=== PATIENT | female | born 1945 | race Caucasian/White ===

== ENCOUNTER 2017-09-08 10:43 | Emergency (ER) | payer MEDICARE ==
[~2017-09-08] VITALS: Ht 167.6 cm; Wt 55.3 kg
[~2017-09-08 10:43] MED LIST: ASPIRIN CHEW81 MG PO; ATIVAN0.5 MG PO; CARVEDILOL3.125 MG PO; CIPRO500 MG PO; CO Q-10100 MG PO; DIFLUCAN200 MG PO; DIGOXIN125 MCG PO; EFFEXOR XR 3737.5 MG PO; FLAGYL500 MG PO; FUROSEMIDE40 MG PO; ISOPTO CARPINE15 ML OD; K DUR10 MEQ PO; LASIX20 MG PO; LEVAQUIN500 MG PO; LISINOPRIL2.5 MG PO; LUMIGAN2.5 M1 OD; MULTAQ 400MG T400 MG PO; OMEGA-31000 M1 PO; VENLAFAXINE H37.5 MG PO; VENLAFAXINE HCL75 MG PO; Z EFFEXOR PO; Z PILOCARPINE HCL OP; Z ZESTRIL PO; Z.0.BABY ASPIRIN81 M PO; Z.0.COQ-10100 MG PO; Z.0.COREG3.125 MG PO; Z.0.KEFLEX500 MG PO; Z.0.PREDNISONE20 MG PO; Z.0.VICODIN 5-5001 E; [UNRECOGNIZED DRUG - OTHER] OP; [UNRECOGNIZED DRUG - REMARK]
[2017-09-08] MEDS ORDERED: SODIUM CHLORIDE 0.9% 1000ML 1,000 ML IV ONE (11:15)
[2017-09-08 11:32] LABS: BASOPHILS # (AUTO) 0.1 (0.0-0.1); EOSINOPHILS # (AUTO) 0.2 (0.0-0.4); EOSINOPHILS % 1.9 % (0.0-6.0); HEMATOCRIT 35.7 % (34.2-44.1); LYMPHOCYTES # (AUTO) 2.6 (1.0-3.2); LYMPHOCYTES % 27.9 % (18.0-39.1); MEAN CORPUSCULAR HEMOGLOBIN 29.9 pg (28-32); MEAN CORPUSCULAR HGB CONC 33.6 g/dL (31-35); MEAN CORPUSCULAR VOLUME 88.8 fL (81-99); MONOCYTES # (AUTO) 0.6 (0.2-0.8); MONOCYTES % 5.9 % (4.4-11.3); NEUTROPHILS # (AUTO) 5.9 (2.1-6.9); NEUTROPHILS % 62.8 % (38.7-80.0); PLATELET COUNT 275 x10e3/uL (140-360); RED BLOOD COUNT 4.02 x10e6/uL (3.6-5.1); RED CELL DISTRIBUTION WIDTH 13.5 % (11.7-14.4)
[2017-09-08 11:49] LABS: ALANINE AMINOTRANSFERASE 14 IU/L (0-55); ALBUMIN 3.6 g/dL (3.5-5.0); ALKALINE PHOSPHATASE 93 IU/L (40-150); ANION GAP 11.9 mmol/L (8-16); BLOOD UREA NITROGEN 17 mg/dL (7-26); BUN/CREATININE RATIO 21 (6-25); CALCIUM 9.1 mg/dL (8.4-10.2); CARBON DIOXIDE 25 mmol/L (22-29); CHLORIDE 107 mmol/L (98-107); EST GLOMERULAR FILTRATION RATE > 60 ML/MIN (60-); GLUCOSE 86 mg/dL (74-118); POTASSIUM 3.9 mmol/L (3.5-5.1); SODIUM 140 mmol/L (136-145)
--- NOTE | 2017-09-08 12:25 | Diagnostic Imaging Report ---
PROCEDURE:X-RAY RIGHT ELBOW, COMPLETE COMPARISON:None. INDICATIONS:FALL, RIGHT ELBOW PAIN FINDINGS:General osteopenia. There are no displaced fractures, dislocations, lytic or blastic lesions. The bones are well-mineralized. The soft-tissues are unremarkable. CONCLUSION: No acute osseous abnormality. Christina Garcia M.D. Dictated by: Christina Garcia M.D. on 09/08/2017 at 12:30 Electronically approved by: Christina Garcia M.D. on 09/08/2017 at 12:30
--- NOTE | 2017-09-08 12:39 | Diagnostic Imaging Report ---
Exam: Head CT without contrast History: Trauma, fall Comparison studies: Head CTs of 12/21/2015, 01/30/2015 and 05/07/2010 Technique: Axial images were obtained from the skull base to the vertex. Coronal and sagittal images reconstructed from the axial data. Intravenous contrast: None Findings: Scalp: No abnormalities. Bones: No fractures, blastic or lytic lesions. Brain sulci: Appropriate for age. Ventricles: Mild compensatory dilatation. No hydrocephalus. Extra-axial spaces: No masses, no fluid collection. Parenchyma: No mass, acute hemorrhage or acute or chronic cortical vascular insults. Confluent hypodensities in the supratentorial white matter are nonspecific but most compatible with chronic microvascular ischemic changes. Small chronic insults in the posterior left cerebellum in the left PICA territory. Sellar/suprasellar region: No abnormalities. Craniocervical junction: Patent foramen magnum. No Chiari one malformation. Incidental findings: * Bilateral intraocular lens replacement. * Atherosclerotic calcifications in the carotid siphons and intradural vertebral arteries. * Chronic inflammatory changes in the right maxillary sinus which is obstructed at the level of the maxillary ostium, is opacified by mucosal thickening and contains central inspissated secretions and calcifications. 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 IMPRESSION: 1. No acute abnormalities. 2. No significant changes from the previous head CT of 01/30/2015. 3. Moderate microvascular ischemic changes. 4. Chronic left cerebellar insults. 5. 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 Signed by: Dr. Donald Velazco M.D. on 09/08/2017 12:36 PM
[2017-09-08 13:17] VITALS: BP 166/77
== END 2017-09-08 13:18 | disposition home or self-care (01) ==
LOC: ER 10:43
DX: R55 Syncope and collapse (principal); S06.0X9A Concussion with loss of consciousness of unspecified duration, initial encounter; R51 Headache; S50.01XA Contusion of right elbow, initial encounter; Y92.002 Bathroom of unspecified non-institutional (private) residence as the place of occurrence of the external cause; W18.12XA Fall from or off toilet with subsequent striking against object, initial encounter
CPT/HCPCS: 36415; 70450; 73080; 80053; 85025; 93005; 99284; J7030

== ENCOUNTER 2017-10-14 11:17 | Outpatient (RCR) | payer MEDICARE | END 2017-10-15 | LOC: PT 11:17 | PROVIDERS: ATTEND Family Medicine | DX: I69.351 Hemiplegia and hemiparesis following cerebral infarction affecting right dominant side (principal) | CPT/HCPCS: 97162; G8990; G8991 ==

== ENCOUNTER 2017-11-10 10:00 | Outpatient (RCR) | payer MEDICARE | END 2017-11-14 | LOC: PT 10:00 | PROVIDERS: ATTEND Family Medicine | DX: M25.511 Pain in right shoulder (principal); M75.41 Impingement syndrome of right shoulder; M25.611 Stiffness of right shoulder, not elsewhere classified; R53.1 Weakness | CPT/HCPCS: 97010 ×2; 97110 ×10; 97112 ×6; 97139; 97164; 97165 ×2; G8987; G8988 ==

== ENCOUNTER 2017-11-22 15:51 | Outpatient (RCR) | payer MEDICARE | END 2017-12-15 | LOC: PT 15:51 | PROVIDERS: ATTEND Family Medicine | DX: M25.511 Pain in right shoulder (principal); M75.42 Impingement syndrome of left shoulder | CPT/HCPCS: 97110 ×4; 97112 ×2; 97139; G8987; G8988 ==

== ENCOUNTER → 2019-02-24 | Outpatient (CLI) | payer MEDICARE, OTHER ==
[~2019-02-24] MED LIST changes: +ASPIRIN81 MG PO; +BACTRIM DS TAB1 EACH PO; +BRIMONIDINE TAR10 ML OP; +CHOLESTIPOL PO; +COLACE100 MG PO; +COREG3.125 MG PO; +COSOPT EYE DROP10 ML OD; +CYMBALTA30 MG PO; +TYLENOL WITH C1 EACH PO; +ULTRAM50 MG PO
[2019-02-24 10:27] LABS: BASOPHILS # (AUTO) 0.2 (0.0-0.1); BASOPHILS % 0.8 % (0.0-1.0); EOSINOPHILS # (AUTO) 0.2 (0.0-0.4); EOSINOPHILS % 0.9 % (0.0-6.0); HEMATOCRIT 39.7 % (34.2-44.1); HEMOGLOBIN 12.5 g/dL (12.0-16.0); LYMPHOCYTES # (AUTO) 2.4 (1.0-3.2); LYMPHOCYTES % 11.7 % (18.0-39.1); MEAN CORPUSCULAR HEMOGLOBIN 28.2 pg (28-32); MEAN CORPUSCULAR HGB CONC 31.5 g/dL (31-35); MEAN CORPUSCULAR VOLUME 89.4 fL (81-99); MONOCYTES # (AUTO) 1.1 (0.2-0.8); MONOCYTES % 5.5 % (4.4-11.3); NEUTROPHILS # (AUTO) 16.3 (2.1-6.9); NEUTROPHILS % 80.2 % (38.7-80.0); PLATELET COUNT 654 x10e3/uL (140-360); RED BLOOD COUNT 4.44 x10e6/uL (3.6-5.1); RED CELL DISTRIBUTION WIDTH 12.1 % (11.7-14.4)
== END ==
LOC: RAD 05:00 → EDSTATUS 02-25 11:00
PROVIDERS: ATTEND Internal Medicine Gastroenterology
DX: Z01.818 Encounter for other preprocedural examination (principal); R10.9 Unspecified abdominal pain
CPT/HCPCS: 36415; 85025; 93005

== ENCOUNTER → 2019-04-20 | Outpatient (CLI) | payer MEDICARE ==
[2019-04-20 13:13] LABS: BASOPHILS # (AUTO) 0.1 (0.0-0.1); EOSINOPHILS # (AUTO) 0.2 (0.0-0.4); EOSINOPHILS % 1.5 % (0.0-6.0); HEMATOCRIT 38.5 % (34.2-44.1); HEMOGLOBIN 12.5 g/dL (12.0-16.0); LYMPHOCYTES # (AUTO) 2.7 (1.0-3.2); LYMPHOCYTES % 22.5 % (18.0-39.1); MEAN CORPUSCULAR HEMOGLOBIN 29.2 pg (28-32); MEAN CORPUSCULAR HGB CONC 32.5 g/dL (31-35); MONOCYTES # (AUTO) 0.7 (0.2-0.8); MONOCYTES % 5.8 % (4.4-11.3); NEUTROPHILS # (AUTO) 8.2 (2.1-6.9); NEUTROPHILS % 68.8 % (38.7-80.0); PLATELET COUNT 363 x10e3/uL (140-360); RED BLOOD COUNT 4.28 x10e6/uL (3.6-5.1); RED CELL DISTRIBUTION WIDTH 14.3 % (11.7-14.4)
== END ==
LOC: DX 15:02 → EDSTATUS 04-24 10:00
PROVIDERS: ATTEND Internal Medicine Gastroenterology
DX: Z01.818 Encounter for other preprocedural examination (principal); R10.30 Lower abdominal pain, unspecified; R59.1 Generalized enlarged lymph nodes; Z53.8 Procedure and treatment not carried out for other reasons
CPT/HCPCS: 36415; 85025

== ENCOUNTER → 2019-06-29 | Day surgery (SDC) | payer MEDICARE, OTHER ==
[2019-06-26 16:09] LABS: BASOPHILS # (AUTO) 0.2 (0.0-0.1); BASOPHILS % 1.5 % (0.0-1.0); EOSINOPHILS # (AUTO) 0.4 (0.0-0.4); EOSINOPHILS % 3.2 % (0.0-6.0); HEMOGLOBIN 12.9 g/dL (12.0-16.0); LYMPHOCYTES # (AUTO) 3.1 (1.0-3.2); LYMPHOCYTES % 26.4 % (18.0-39.1); MEAN CORPUSCULAR HEMOGLOBIN 28.2 pg (28-32); MEAN CORPUSCULAR HGB CONC 31.5 g/dL (31-35); MEAN CORPUSCULAR VOLUME 89.7 fL (81-99); MONOCYTES # (AUTO) 0.8 (0.2-0.8); NEUTROPHILS # (AUTO) 7.3 (2.1-6.9); NEUTROPHILS % 61.5 % (38.7-80.0); PLATELET COUNT 409 x10e3/uL (140-360); RED BLOOD COUNT 4.57 x10e6/uL (3.6-5.1); RED CELL DISTRIBUTION WIDTH 13.2 % (11.7-14.4)
[~2019-06-29] MED LIST changes: +HYOSCYAMINE 0.125 MG TAB ONE; +LIDOCAINE HCL 2% LOCAL INJ 5 ML SDV VIAL INJ ONE; +PROPOFOL IV EMULSION 10 MG/ML 20 ML VIAL ONE
--- OUTSIDE RECORDS SUMMARY | 2019-06-29 08:37 | XMS REPORT | Clinical Summary ---
Author Author [facility] Address Unknown Phone Unavailable Care Team Providers Care Latin American Studies Director Name Role Phone Blaise Dickerson MD PCP Allergies Comments Active Allergy Reactions Severity Noted Date Penicillins 10/07/2017 Medications End Date Status Medication Sig Dispensed Refills Start Date Active venlafaxine (EFFEXOR) 75 Take 75 mg by 0 MG tablet mouth daily. Active carvedilol (COREG) 12.5 Take 12.5 mg 0 MG tablet by mouth 2 (two) times a day with meals. Active aspirin (ECOTRIN) 81 MG Take 81 mg by 0 enteric coated tablet mouth 2 (two) times a day. Active levETIRAcetam (KEPPRA) Take 250 mg 0 250 MG tablet by mouth daily. Active colestipol (COLESTID) 1 Take 1 g by 0 gram tablet mouth 2 (two) times a day. Active Lactobac no.41/Bifidobact Take 1 tablet 0 no.7 (PROBIOTIC-10 ORAL) by mouth daily. Active multivitamin (THERAGRAN) Take 1 tablet 0 tablet by mouth daily. 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 Closed traumatic dislocation of glenohumeral joint, r ight, sequela 10/29/2017 Closed right humeral fracture 10/29/2017 B12 deficiency 10/29/2017 Memory loss 10/29/2017 Paroxysmal atrial fibrillation 10/29/2017 Encounters Care Team Description Date Type Specialty Melvina Reich MA 09/20/2018 Telephone Neurology after 06/28/2018 Family History Medical History Relation Name Comments No Known Problems Father No Known Problems Mother Relation Name Status Comments Father (Age 70) Mother (Age 70) Social History Date Tobacco Use Types Packs/Day Years Used Quit: 1999 Former Smoker Smokeless Tobacco: Never Used Drinks/Week oz/Week Comments Alcohol Use No Sex Assigned at Date Recorded Not on file Industry Job Start Date Occupation Not on file Not on file Not on file Travel End Travel History Travel Start No recent travel history available. Last Filed Vital Signs Not on file Plan of Treatment Health Maintenance Due Date Last Done Comments BREAST CANCER SCREENING 12/12/1993 COLONOSCOPY SCREENING 12/12/1993 SHINGLES VACCINES (#1) 12/12/1993 65+ PNEUMOCOCCAL VACCINE 12/12/2008 (1 of 2 - PCV13) INFLUENZA VACCINE 09/16/2019 Results Not on fileafter 06/28/2018 Insurance Type Payer Benefit Subscriber ID Effective Phone Address Plan / Dates Group [facility] MEDICARE AARP xxxxxxxxx 2017-P MEDICARE resent COMPLETE [facility] Liability Advance Directives For more information, please contact: [phone] Patient Vice President Underwriting Explanation Type Date Recorded Advance Directives, Living Will and Medical Power of Maintenance Tech
--- OUTSIDE RECORDS SUMMARY | 2019-06-29 08:38 | XMS REPORT ---
Author Author [facility] t Organization [facility] t Address [address] [place] [address] Phone Unavailable Care Team Providers Care Yarn Examiner Name Role Phone Varun SHIELDS MD PCP Neeraj RIVAS Attphys Unavailable Varun SHIELDS Attphys Unavailable KEERTHI PERES Attphys Unavailable Melvina Reich MA Attphys Unavailable Andrew ROMERO Attphyvarun Unavailable Varun SHIELDS Admphyvarun Unavailable Payers Payer Name Policy Type Policy Number Effective Date Expiration Date Varun berumen [facility] Medicare Complete [id number] 2019 00:00:00 [facility] Medicare Complete [id number] 2019 00:00:00 [facility] Aar Medicare Complete [id number] 2019 00:00:00 [facility] [id number] [facility] [id number] [facility] Aar Medicare Complete [id number] 2019 00:00:00 [facility] Medicare Complete [id number] [facility] MEDICAREAARP MEDICARE COMPLETE [id number]/[facility] [place] xxxxxxxxx 2017 00:00:00 Genaro Felton Aarp Medicare Complete [id number] [facility] Medicare Complete [id number] [facility] Medicare Complete [id number] 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 2017-10-29 00:00:00 Genaro Felton Closed traumatic dislocation of glenohumeral joint, ri ght, sequela Closed traumatic dislocation of glenohumeral joint, right, sequela Disease Active 2017-10-29 00:00:00 Genaro Felton Closed right humeral fracture Closed right humeral fracture Disease Active 2017-10-29 00:00:00 Genaro Felton B12 deficiency B12 deficiency Disease Active 2017-10-29 00:00:00 Genaro Felton Memory loss Memory loss Disease Active 2017-10-29 00:00:00 Genaro Felton Paroxysmal atrial fibrillation Paroxysmal atrial fibrillation Disea se Active 2017-10-29 00:00:00 Genaro Felton Bronchitis Bronchitis Problem Active 2013-12-26 00:00:00 [facility] Sepsis Sepsis Problem Active 2013-12-26 00:00:00 [facility] Abnormal electrocardiogram EKG abnormalities Problem Active 28-11-26 00:00:00 [facility] Left bundle branch block Left bundle branch block Problem Acti ve 2013-12-11 00:00:00 [facility] Unstable angina pectoris Unstable angina Problem Active 2013-12-11 00:0 0:00 [facility] Atrial fibrillation Atrial fibrillation Problem Active 2013-11-27 00:00 :00 [facility] Congestive heart failure CHF (congestive heart failure) Problem Active 2013-11-27 00:00:00 [facility] Transient cerebral ischemia Brain TIA Problem Active [facility] Chest pain Chest pain Problem Active [facility] Urinary tract infection UTI (urinary tract infection) Problem Active [facility] Allergies, Adverse Reactions, Alerts Allergy Name Allergy Type Status Severity Reaction(s) Onset Date Inacti ve Date Treating Clinician Comments Source Penicillin Allergy to Substance Active Unknown 2019-02-16 00:00:00 [facility] Penicillins Propensity to adverse reactions to drug Active 2017-10-07 00:00:00 Genaro dempsey COLD BLOOD Allergy to Substance Active Unknown CANNOT TAKE COLD BLOOD WILL DAMAGE RBC'S - MUST BE WARMED. 2017-09-08 00:00:00 [facility] Family History Family Member Diagnosis Comments Start Date Stop Date Source Natural father No Known Problems Ana M Felton Natural mother No Known Problems Ana M Felton Social History Social Habit Start Date Stop Date Quantity Comments Source History of tobacco use Current smoker Genaro Felton Sex Assigned At Ana M Felton Alcohol intake 2017-10-29 00:00:00 2017-10-29 00:00:00 Current non-drinker of alcohol (finding) Genaro Felton Smoking Status Start Date Stop Date Source Former smoker 2017-10-29 00:00:00 2017-10-29 00:00:00 Genaro Felton Medications Ordered Medication Name Filled Medication Name Start Date Stop Da te Current Medication? Ordering Clinician Indication Dosage Frequency Signature (SIG) Comments Components Source Tramadol Hcl (Ultram) 50 Mg Tablet Tramadol Hcl (Ultram) 50 Mg Tablet 2019-02-19 00:00:00 Yes Keerthi Peres Do 50 Ev elvia 6 Hours as needed for Abdominal Pain [facility] Acetaminophen With Codeine (Tylenol With Codeine #3 Tablet) 1 Each Tablet, 300 Mg Oral Acetaminophen With Codeine (Tylenol With Codeine #3 Tablet) 1 Each Tablet, 300 Mg Oral 2019-02-19 00:00:00 2019-03-05 00:00:00 No Ambi ca Sandhir Do 300 Every 6 Hours as needed for Abdominal Pa in [facility] Docusate Sodium (Colace) 100 Mg Cap, 100 Mg Oral Docus ate Sodium (Colace) 100 Mg Cap, 100 Mg Oral 2019-02-16 00:00:00 2019-02-24 00:00:00 No Ambica Sandh ir Do 100 Daily [facility] Sulfamethoxazole/Trimethoprim (Bactrim Ds Tablet) 1 Ea ch Tablet, 1 Tab Oral Sulfamethoxazole/Trimethoprim (Bactrim Ds Tablet) 1 Each Tablet, 1 Tab Oral 2019-02-16 00:00:00 2019-02-24 00:00:00 No Ambica Sandhir Do 1 Twice A Day [facility] multivitamin (THERAGRAN) tablet 2017-10-29 18:02:10 Yes 1{tbl} QD Take 1 tablet by mouth daily. Genaro Felton venlafaxine (EFFEXOR) 75 MG tablet 2017-10-29 18:02:08 Yes 75mg QD Take 75 mg by mouth daily. Genaro Felton carvedilol (COREG) 12.5 MG tablet 2017-10-29 18:02:08 Yes 12.5mg Q.5D Take 12.5 mg by mouth 2 (two) times a day with meals. Genaro Felton aspirin (ECOTRIN) 81 MG enteric coated tablet 2017-10-29 18:02:0 8 Yes 81mg Q.5D Take 81 mg by mouth 2 (two) times a day. Genaro Felton levETIRAcetam (KEPPRA) 250 MG tablet 2017-10-29 18:02:08 Ye s 250mg QD Take 250 mg by mouth daily. Genaro persaud colestipol (COLESTID) 1 gram tablet 2017-10-29 18:02:08 Yes 1g Q.5D Take 1 g by mouth 2 (two) times a day. Alana Felton Lactobac no.41/Bifidobact no.7 (PROBIOTIC-10 ORAL) 2017-10 18:02:08 Yes 1{tbl} QD Take 1 tablet by mouth daily. Genaro Felton Levofloxacin (Levaquin) 500 Mg Tablet, 500 Mg Oral Lev ofloxacin (Levaquin) 500 Mg Tablet, 500 Mg Oral 2013-12-29 00:00:00 2015-01-30 00:00:00 Trinidad Cruz Md 500 Daily [facility] Metronidazole (Flagyl) 500 Mg Tablet, 500 Mg Oral Metr onidazole (Flagyl) 500 Mg Tablet, 500 Mg Oral 2013-12-29 00:00:00 2015-01-30 00:00:00 Trinidad Cruz Md 500 Every [address] [facility] Bimatoprost (Lumigan) 2.5 Ml Drops Bimatoprost (Lumigan) 2.5 Ml Drops Yes 1 Bedtime [facility] Brimonidine Tartrate 10 Ml Drops Brimonidine Tartrate 10 Ml Drops Yes 10 Every 12 Hours [facility] Carvedilol (Coreg) 3.125 Mg Tab Carvedilol (Coreg) 3.125 Mg Tab Yes 6.25 Twice Daily With Meals [facility] Duloxetine Hcl (Cymbalta) 30 Mg Capsule. Duloxetine Hcl (Cymbalta) 30 Mg Capsule. Yes 60 Twice A Day [facility] Pilocarpine Hcl (Isopto Carpine) 15 Ml Drops Pilocarpi ne Hcl (Isopto Carpine) 15 Ml Drops Yes 1 Every [address] [facility] Ubidecarenone (Co Q-10) 100 Mg Capsule Ubidecarenone (Co Q-10) 1 00 Mg Capsule Yes 100 Daily [facility] Aspirin (Aspirin Chew) 81 Mg Chew, 81 Mg Oral Aspirin (Aspirin Chew) 81 Mg Chew, 81 Mg Oral 2019-02-24 00:00:00 No 81 Twice A Day [facility] Carvedilol 3.125 Mg Tablet, 6.25 Mg Oral Carvedilol 3. 125 Mg Tablet, 6.25 Mg Oral 2019-02-24 00:00:00 No 6.25 Twice A Day [facility] Lisinopril 2.5 Mg Tablet, 2.5 Mg Oral Lisinopril 2.5 Mg Tablet, 2.5 Mg Oral 2019-02-24 00:00:00 No 2.5 Twice A Day [facility] Venlafaxine Hcl (Effexor Xr 37.5MG Capcr*) 37.5 Mg Cap cr, 37.5 Mg Oral Venlafaxine Hcl (Effexor Xr 37.5MG Capcr*) 37.5 Mg Capcr, 37.5 Mg Oral 2019-02-24 00:00:00 No 37.5 Twice A Day [facility] Digoxin 125 Mcg Tablet, 0.125 Mg Oral Digoxin 125 Mcg Tablet, 0. 125 Mg Oral 2015-01-30 00:00:00 No .125 Daily [facility] Furosemide 40 Mg Tablet, 20 Mg Oral Furosemide 40 Mg Tablet, 20 Mg Oral 2015-01-30 00:00:00 No 20 Daily [facility] Venlafaxine Hcl 75 Mg Tab, 75 Mg Oral Venlafaxine Hcl 75 Mg Tab, 75 Mg Oral 2015-01-30 00:00:00 No 75 Bedtime [facility] Venlafaxine Hcl (Effexor) 50 Mg Tablet, 37.5 Mg Oral V enlafaxine Hcl (Effexor) 50 Mg Tablet, 37.5 Mg Oral 2013-12-27 00:00:00 No 37.5 Bedtime [facility] Ciprofloxacin Hcl (Cipro) 500 Mg Tablet, 500 Mg Oral C iprofloxacin Hcl (Cipro) 500 Mg Tablet, 500 Mg Oral 2013-12-26 00:00:00 No 500 Every 12 Hours [facility] Fluconazole (Diflucan) 200 Mg Tablet, 200 Mg Oral Fluc onazole (Diflucan) 200 Mg Tablet, 200 Mg Oral 2013-12-26 00:00:00 No 200 Nazia y [facility] Dronedarone (Multaq 400MG Tablets*) 400 Mg Tab, 400 Mg Oral Dronedarone (Multaq 400MG Tablets*) 400 Mg Tab, 400 Mg Oral 2013-11-27 00:00:00 No 400 Twice A Day [facility] Furosemide (Lasix) 20 Mg Tablet, 20 Mg Oral Furosemide (Lasix) 20 Mg Tablet, 20 Mg Oral 2013-11-27 00:00:00 No 20 Every Morning [facility] Levofloxacin (Levaquin) 500 Mg Tablet, 500 Mg Oral Lev ofloxacin (Levaquin) 500 Mg Tablet, 500 Mg Oral 2013-11-27 00:00:00 No 500 D aily [facility] Lorazepam (Ativan*) 0.5 Mg Tablet, 0.5 Mg Oral Lorazep am (Ativan*) 0.5 Mg Tablet, 0.5 Mg Oral 2013-11-27 00:00:00 No .5 Ever y 24 Hrs [facility] Potassium Chloride (K Dur*) 10 Meq Tabcr, 20 Meq Oral Potassium Chloride (K Dur*) 10 Meq Tabcr, 20 Meq Oral 2013-11-27 00:00:00 No 20 Daily [facility] Cephalexin Monohydrate (Keflex) 500 Mg Capsule, 500 Mg Oral Cephalexin Monohydrate (Keflex) 500 Mg Capsule, 500 Mg Oral 2012-08-20 00:00:00 No 500 Every 6 Hours [facility] Hereford-3 Fatty Acids (Hereford-3) 1,000 Mg Capsule, 1 Cap Oral Hereford-3 Fatty Acids (Hereford-3) 1,000 Mg Capsule, 1 Cap Oral 2012-08-20 00:00:00 No 1 Daily [facility] Prednisone 20 Mg Tablet, 10 Mg Oral Prednisone 20 Mg Tablet, 10 Mg Oral 2012-08-20 00:00:00 No 10 Daily [facility] Hydrocodone Bit/Acetaminophen (Vicodin 5-500 Tablet) 1 Each Tablet, Hydrocodone Bit/Acetaminophen (Vicodin 5-500 Tablet) 1 Each Tablet, 2011 00:00:00 [facility] Procedures Procedure Date / Time Performed Performing Clinician [facility] qi Computed tomography of abdomen and pelvis with contrast 2019 00:00:00 VINICIUS ARREDONDO [facility] Computed tomography of abdomen and pelvis with contrast 2019 00:00:00 VINICIUS PURDY [facility] Plan of Care Planned Activity Planned Date Details Comments Source Future Scheduled Test [code = ] Future Scheduled Test [code = ] Future Scheduled Test [code = ] Future Scheduled Test [code = ] Future Scheduled Test [code = ] Encounters Start Date/Time End Date/Time Encounter Type [facility] Encounter ID Source 2019-03-14 14:43:00 2019-03-14 18:46:00 Departed Emergency Room [facility] [id number] [facility] Patients [facility] 2019-03-05 09:23:00 2019-03-06 20:03:00 Discharged Inpatient (obs) 1 FRANCIS RIVAS [facility] [id number] [facility] 2019-02-25 11:38:00 2019-03-02 13:40:00 Discharged Inpatient 1 BERE SHIELDS [facility] [id number] [facility] 2019-02-23 18:58:00 2019-02-23 19:50:00 Departed Emergency Room [facility] [id number] [facility] 2019-02-19 16:00:00 2019-02-19 17:03:00 Departed Emergency Room [facility] [id number] [facility] 2019-02-16 13:04:00 2019-02-16 21:18:00 Departed Emergency Room 1 KEERTHI PERES [facility] [id number] [facility] 2017-11-10 10:00:00 2017-11-14 23:59:00 Discharged Recurring [facility] [id number] [facility] 2017-10-14 11:17:00 2017-10-15 23:59:00 Discharged Recurring [facility] [id number] [facility] 2017-09-08 10:43:00 2017-09-08 13:18:00 Departed Emergency Room 1 VIOLETA ROMERO [facility] [id number] [facility] Results Test Description Test Time Test Comments Results Result Comments Source [facility] 2019-03-14 18:17:00 Test Item Lipase (test code = 3040-3) 75 8-78 [facility] [id number] 18:14:00* Test Item Value Reference Range Interpretation Comments Sodium Level (test code = 2951-2) 135 136-145 [facility]Potassium [id number] 18:14:00* Test Item Value Reference Range Interpretation Comments Potassium Level (test code = 2823-3) 4.1 3.5-5.1 [facility] HospitalChloride [id number] 18:14:00* Test Item Value Reference Range Interpretation Comments Chloride Level (test code = 2075-0) 99 98-107 [facility] HospitalCarbon Dioxide [id number] 18:14:00* Test Item Value Reference Range Interpretation Comments Carbon Dioxide Level (test code = 2028-9) 23 22-29 [facility] HospitalAnion [id number] 18:14:00* Test Item Value Reference Range Interpretation Comments Anion Gap (test code = 21988-8) 17.1 8-16 [facility] HospitalBlood Urea [id number] 18:14:00* Test Item Value Reference Range Interpretation Comments Blood Urea Nitrogen (test code = 3094-0) 16 7-26 [facility] HospitalCreatinine2020-01-28 18:14:00* Test Item Value Reference Range Interpretation Comments Creatinine (test code = 2160-0) 0.87 0.57-1.11 [facility] HospitalBUN/Creatinine [id number] 18:14:00* Test Item Value Reference Range Interpretation Comments BUN/Creatinine Ratio (test code = 3097-3) 18 6-25 [facility] HospitalEstimat Glomerular Filtration Rate 2019-03-14 18:14:00* Test Item Value Reference Range Interpretation Comments Estimat Glomerular Filtration Rate (test code = 948811345) > 60 >60 Ranges were taken from the National Kidney Disease Education Program and the [employer] [facility] [employer] literature.Reference ranges:60 or greater: Tawkzp81-95 ( for 3 consecutive months): Chronic kidney disease 15 or less: Kidney failureNocona General HospitalGlucose Xwnmd9953-01-29 18:14:00* Test Item Value Reference Range Interpretation Comments Glucose Level (test code = GLX7128) 120 74-118 [facility] HospitalCalcium [id number] 18:14:00* Test Item Value Reference Range Interpretation Comments Calcium Level (test code = 83961-2) 10.0 8.4-10.2 [facility] HospitalTotal Kaxvngrsm5528-14-22 18:14:00* Test Item Value Reference Range Interpretation Comments Total Bilirubin (test code = 1975-2) 0.4 0.2-1.2 [facility] HospitalAspartate Amino Transf (AST/SGOT) 2019-03-14 18:14:00* Test Item Value Reference Range Interpretation Comments Aspartate Amino Transf (AST/SGOT) (test code = Aspartate Amino Transf (AST/SGOT)) 41 5-34 [facility] HospitalAlanine Aminotransferase (ALT/SGPT) 2019-03-14 18:14:00* Test Item Value Reference Range Interpretation Comments Alanine Aminotransferase (ALT/SGPT) (test code = 1742-6) 29 0-55 [facility] HospitalTotal Lerikxi2805-00-09 18:14:00* Test Item Value Reference Range Interpretation Comments Total Protein (test code = 2885-2) 8.0 6.5-8.1 [facility] HospitalAlbumin2020-01-28 18:14:00* Test Item Value Reference Range Interpretation Comments Albumin (test code = 1751-7) 3.6 3.5-5.0 [facility] HospitalGlobulin2020-01-28 18:14:00* Test Item Value Reference Range Interpretation Comments Globulin (test code = 30235-4) 4.4 2.3-3.5 [facility] HospitalAlbumin/Globulin [id number] 18:14:00 * Test Item Value Reference Range Interpretation Comments Albumin/Globulin Ratio (test code = 1759-0) 0.8 0.8-2.0 [facility] HospitalAlkaline Rexqznqhwhv5677-34-57 18:14:00* Test Item Value Reference Range Interpretation Comments Alkaline Phosphatase (test code = 6768-6) 205 40-150 [facility] HospitalWhite Blood Nsldj8495-42-21 18:00:00* Test Item Value Reference Range Interpretation Comments White Blood Count (test code = 6690-2) 11.12 4.8-10.8 [facility] HospitalRed Blood Azwtr7828-37-84 18:00:00* Test Item Value Reference Range Interpretation Comments Red Blood Count (test code = 789-8) 4.33 3.6-5.1 [facility] HospitalHemoglobin2020-01-28 18:00:00* Test Item Value Reference Range Interpretation Comments Hemoglobin (test code = 72541-7) 12.3 12.0-16.0 [facility] HospitalHematocrit2020-01-28 18:00:00* Test Item Value Reference Range Interpretation Comments Hematocrit (test code = 4544-3) 38.6 34.2-44.1 [facility] HospitalMean Corpuscular Vahwat5769-94-66 18:00:00* Test Item Value Reference Range Interpretation Comments Mean Corpuscular Volume (test code = 787-2) 89.1 81-99 [facility] HospitalMean Corpuscular Mekzmbwphv1606-60-95 18:00:00* Test Item Value Reference Range Interpretation Comments Mean Corpuscular Hemoglobin (test code = 785-6) 28.4 28-32 [facility] HospitalMean Corpuscular Hemoglobin Concent 2019-03-14 18:00:00* Test Item Value Reference Range Interpretation Comments Mean Corpuscular Hemoglobin Concent (test code = 786-4) 31.9 31-35 [facility] HospitalRed Cell Distribution Suhpp4179-84-75 18:00:00* Test Item Value Reference Range Interpretation Comments Red Cell Distribution Width (test code = 18124-1) 13.2 11.7 -14.4 [facility] HospitalPlatelet [id number] 18:00:00* Test Item Value Reference Range Interpretation Comments Platelet Count (test code = 777-3) 527 140-360 [facility] HospitalNeutrophils (%) (Auto)2019-03-14 18:00:00 * Test Item Value Reference Range Interpretation Comments Neutrophils (%) (Auto) (test code = 25640-4) 70.9 38.7-80.0 [facility] HospitalLymphocytes (%) (Auto)2019-03-14 18:00:00 * Test Item Value Reference Range Interpretation Comments Lymphocytes (%) (Auto) (test code = 736-9) 20.0 18.0-39.1 [facility] HospitalMonocytes (%) (Auto)2019-03-14 18:00:00* Test Item Value Reference Range Interpretation Comments Monocytes (%) (Auto) (test code = 5905-5) 5.8 4.4-11.3 [facility] HospitalEosinophils (%) (Auto)2019-03-14 18:00:00 * Test Item Value Reference Range Interpretation Comments Eosinophils (%) (Auto) (test code = 713-8) 1.3 0.0-6.0 [facility] HospitalBasophils (%) (Auto)2019-03-14 18:00:00* Test Item Value Reference Range Interpretation Comments Basophils (%) (Auto) (test code = 706-2) 1.3 0.0-1.0 [facility] HospitalIM GRANULOCYTES %2019-03-14 18:00:00* Test Item Value Reference Range Interpretation Comments IM GRANULOCYTES % (test code = IM GRANULOCYTES %) 0.7 0.0- 1.0 [facility] HospitalNeutrophils # (Auto)2019-03-14 18:00:00* Test Item Value Reference Range Interpretation Comments Neutrophils # (Auto) (test code = 751-8) 7.9 2.1-6.9 [facility] HospitalLymphocytes # (Auto)2019-03-14 18:00:00* Test Item Value Reference Range Interpretation Comments Lymphocytes # (Auto) (test code = 85792-5) 2.2 1.0-3.2 [facility] HospitalMonocytes # (Auto)2019-03-14 18:00:00* Test Item Value Reference Range Interpretation Comments Monocytes # (Auto) (test code = 742-7) 0.7 0.2-0.8 [facility] HospitalEosinophils # (Auto)2019-03-14 18:00:00* Test Item Value Reference Range Interpretation Comments Eosinophils # (Auto) (test code = 711-2) 0.2 0.0-0.4 [facility] HospitalBasophils # (Auto)2019-03-14 18:00:00* Test Item Value Reference Range Interpretation Comments Basophils # (Auto) (test code = 704-7) 0.1 0.0-0.1 [facility] HospitalAbsolute Immature Granulocyte (auto 2019-03-14 18:00:00* Test Item Value Reference Range Interpretation Comments Absolute Immature Granulocyte (auto (bryant t code = Absolute Immature Granulocyte (auto) 0.08 0-0.1 [facility] HospitalTriglycerides [id number] 08:43:00* Test Item Value Reference Range Interpretation Comments Triglycerides Level (test code = 2571-8) 76 0-149 [facility] HospitalCholesterol Ynvkg0495-48-85 08:43:00* Test Item Value Reference Range Interpretation Comments Cholesterol Level (test code = 2093-3) 112 0-199 Less than 200 mg/dL Low Zybl772 - 239 mg/dL Borderline Qjqp311 m g/dl and greater High Risk [facility] HospitalLDL Uxpjcbsztjs0886-59-92 08:43:00* Test Item Value Reference Range Interpretation Comments LDL Cholesterol (test code = 2089-1) 50 60-130 [facility] HospitalHDL Xjdcnavdejf7880-68-74 08:43:00* Test Item Value Reference Range Interpretation Comments HDL Cholesterol (test code = 2085-9) 47 40-60 [facility] HospitalCholesterol/HDL Jdlxg9999-39-57 08:43:00 * Test Item Value Reference Range Interpretation Comments Cholesterol/HDL Ratio (test code = 9830-1) 2.4 3.0-3.6 [facility] HospitalBedside Hduleus4368-60-92 07:36:00* Test Item Value Reference Range Interpretation Comments Bedside Glucose (test code = 56024-5) 187 70-120 Meter ID: [id number] General HospitalCreatine Kinase MB 2019-03-06 07:01:00* Test Item Value Reference Range Interpretation Comments Creatine Kinase MB (test code = 82523-3) 2.40 0-5.0 [facility] HospitalTroponin [id number] 07:01:00* Test Item Value Reference Range Interpretation Comments Troponin I (test code = YZX4524) 0.046 0-0.300 [facility] HospitalCreatine Eudovq5647-19-13 06:40:00* Test Item Value Reference Range Interpretation Comments Creatine Kinase (test code = 2157-6) 54 29-168 [facility] HospitalCHEST SINGLE (PORTABLE)2019-03-05 09:17:00 [place] [address] Patient Name: JOSÉ MIGUEL COCHRAN MR #: [id number] : 1945 Age/Sex: 73/F Req #: [id number] Adm Physician: Ordered by: FRANCIS RIVAS MD Report #: [id number] Location: ER Room/Bed: Procedure: [id number] DX/CHES T SINGLE (PORTABLE) Exam Date: 03/05/19 Exam Time: 0 844 REPORT STATUS: Signed EXAMIN ATION: CHEST SINGLE (PORTABLE) INDICATION: CHEST PAIN [id number] Y COMPARISON: Chest radiograph 02/24/[address] abdom en and pelvis 02/24/2019 FINDINGS: AP view TUBES and LINES: S table 3-lead ICD with leads overlying the right atrium, coronary sinus, and ri ght ventricle. LUNGS: Lungs are well inflated. Interval development of bi lateral interstitial edema. No new consolidations. Bibasilar atelectasis, st able. PLEURA: Trace bilateral pleural effusions, new. No pneumothorax. HEART AND MEDIASTINUM: Prominent left ventricle. Mild atherosclerotic calc ifications of the aortic arch. BONES AND SOFT TISSUES: Unchanged posttraum atic deformity of the right humeral head. Soft tissues are unremarkable. UPPER ABDOMEN: No free air under the diaphragm. IMPRESSION: Interval development of bilateral interstitial edema and trace bilateral pleural effu sions. Signed by: Dr. Ayesha Townsend M.D. on 03/05/2019 9:19 AM Dictated By: AYESHA TOWNSEND MD 8 Transcribed By: CLARISSA on 03/05/19918 COPY TO: FRANCIS RIVAS MD Urine [id number] 08:57:00* Test Item Value Reference Range Interpretation Comments Urine WBC (test code = 5821-4) 11-20 0-5 [facility] HospitalU[facility] [id number] 08:57:00* Test Item Value Reference Range Interpretation Comments Urine RBC (test code = 20620-6) 6-10 0-5 [facility] HospitalU[facility] [id number] 08:57:00* Test Item Value Reference Range Interpretation Comments Urine Bacteria (test code = 11445-1) MODERATE NONE [facility] HospitalUrine Epithelial Debbm3741-13-92 08:57:00 * Test Item Value Reference Range Interpretation Comments Urine Epithelial Cells (test code = 60024-0) FEW NONE [facility] HospitalUrine [id number] 08:52:00* Test Item Value Reference Range Interpretation Comments Urine Color (test code = 5778-6) YELLOW YELLOW [facility] HospitalUrine Zdsiubs7438-80-95 08:52:00* Test Item Value Reference Range Interpretation Comments Urine Clarity (test code = 92307-7) CLEAR CLEAR [facility] HospitalUrine Specific Oettxfa4868-77-70 08:52:00 * Test Item Value Reference Range Interpretation Comments Urine Specific [place] (test code = 5811-5) 1.025 1.010-1.02 5 [facility] uB1221-06-41 08:52:00* Test Item Value Reference Range Interpretation Comments Urine pH (test code = 69553-1) 5.5 5-7 [facility] Leukocyte Sieptvlx5105-86-11 08:52:00* Test Item Value Reference Range Interpretation Comments Urine Leukocyte Esterase (test code = 5799-2) NEGATIVE NEGATIVE [facility] Bjfgxmw8130-55-10 08:52:00* Test Item Value Reference Range Interpretation Comments Urine Nitrite (test code = 96359-3) NEGATIVE NEGATIVE [facility] Zvrloof1198-53-23 08:52:00* Test Item Value Reference Range Interpretation Comments Urine Protein (test code = 5804-0) TRACE NEGATIVE [facility] Glucose (UA)2019-03-05 08:52:00* Test Item Value Reference Range Interpretation Comments Urine Glucose (UA) (test code = 2349-9) NEGATIVE NEGATIVE [facility] Bzacfyw5938-57-88 08:52:00* Test Item Value Reference Range Interpretation Comments Urine Ketones (test code = 76070-6) 1+ NEGATIVE [facility] Wimcznkecpoa7733-65-85 08:52:00* Test Item Value Reference Range Interpretation Comments Urine Urobilinogen (test code = 90780-9) 0.2 0.2-1 [facility] Teuzcnpfc3132-29-67 08:52:00* Test Item Value Reference Range Interpretation Comments Urine Bilirubin (test code = 1978-6) NEGATIVE NEGATIVE [facility] Fqrra1460-06-68 08:52:00* Test Item Value Reference Range Interpretation Comments Urine Blood (test code = 13375-1) 2+ NEGATIVE [facility] Natriuretic Hpzyonz8736-48-18 08:32:00* Test Item Value Reference Range Interpretation Comments B-Type Natriuretic Peptide (test code = 96151-2) 274.8 0-100 [facility]Prothrombin Bmzd5581-46-64 08:13:00* Test Item Value Reference Range Interpretation Comments Prothrombin Time (test code = 5902-2) 13.4 11.9-14.5 [facility] HospitalProthromb Time International Ratio 2019-03-05 08:13:00* Test Item Value Reference Range Interpretation Comments Prothromb Time International Ratio (test code = 6301-6) 0.97 Oral Anticoagulant Therapy INR Values:1. Low Intensity Therapy 1.5 - 2.02 . Moderate Intensity Therapy 2.0 - 3.03. High Intensity Therapy(1) 2.5 - 3. 54. High Intensity Therapy(2) 3.0 - 4.05. Panic Value INR > 5.0 [facility] HospitalAct[facility] Partial Thromboplast Time 2019-03-05 08:13:00* Test Item Value Reference Range Interpretation Comments Activated Partial Thromboplast Time (test code = 34285-1) 33.1 23.8-35.5 [facility]Blood Dscnakx8488-89-14 21:00:00* Test Item Value Reference Range Interpretation Comments Blood Culture (test code = 74072986) NO GROWTH AFTER 5 DAYS, FINAL REPORT [facility] HospitalImmunoglobulin F4577-29-31 11:25:00* Test Item Value Reference Range Interpretation Comments Immunoglobulin A (test code = 2458-8) 656 64422 [facility]Immun[facility] Z2203-70-39 11:25:00* Test Item Value Reference Range Interpretation Comments Immunoglobulin G (test code = 2465-3) 1042 808-0124 [facility] T8032-61-33 11:25:00* Test Item Value Reference Range Interpretation Comments Immunoglobulin M (test code = 2472-9) 130 26-217 Performed at: [address] [id number] Director: Akhil Morales MD, Phone: [phone] [facility] HospitalLactic Acid Xxcqt7688-08-78 06:10:00* Test Item Value Reference Range Interpretation Comments Lactic Acid Level (test code = Lactic Acid Level) 1.1 0.5- 2.[address] [facility] Y0243-11-62 22:37:00 [facility] [address] [address] Patient Name: JOSÉ MIGUEL COCHRAN MR #: [id number] : 1945 Age/Sex: 73/F Req #: [id number] Adm Physician: BERE SHIELDS MD Ordered by: VINICIUS ARREDONDO DO Report #: [id number] Location: [facility] Room/Bed: [place] [address] Procedure: [id number] CT/CT ABDOMEN/PELVIS W Exam Date: 02/24/19 Exam Time: 2215 REPORT STATUS: Signed EXAMINATI ON: CT of the abdomen and pelvis with contrast. TECHNIQUE: Helical CT im ages of the abdomen and pelvis were performed from the lung bases to the lesse r trochanters after the intravenous administration of 100 cc of Isovue 300 and the oral administration of Gastro. Coronal and sagittal reformatted images w ere obtained. Dose modulation, iterative reconstruction, and/or weight based adjustment of the mA/kV was utilized to reduce the radiation dose to as low as reasonably achievable. COMPARISON: None. CLINICAL HISTORY:Abdominal pain, vomiting DISCUSSION: ABDOMEN/PELVIS: LOWER THORAX:Ate lectasis in the lung base. HEPATOBILIARY: Stable hypodensity left hepatic l obe. No enhancing lesion. No intra-or extrahepatic biliary ductal dilation. The gallbladder is normal. SPLEEN: No splenomegaly. PANCREAS: No fo kenia masses or ductal dilatation. ADRENALS: Left renal cyst. No solid lesio ns. KIDNEYS/URETERS: No hydronephrosis, stones, or solid mass lesions. PELVIC ORGANS/BLADDER: Hysterectomy. PERITONEUM/RETROPERITONEUM: No free a ir or fluid. LYMPH NODES: Enlarged lymph nodes including the retrocrural ar ea, retroperitoneum relatively stable. VESSELS: Vascular calcifications. GI TRACT: The rectal distention has decreased from 7.7 cm 6.2 cm with wall thickening. Air is visualized within the luminal wall for example image 69 and and possibly within the extraperitoneal space. No intraperitoneal free air visualized. The air anteriorly to the rectum may be within the vagina. BONES AND SOFT TISSUE: New compression fracture of T12 with retropulsion and stable compression fracture of L2 with retropulsion. No soft tissue abnormali ties. IMPRESSION: Stercoral colitis of the rectum with inflammatory thickening and probable microperforation. No free intraperitoneal air. N ew compression fracture of T12 with posterior retropulsion and stable compress ion fracture of L2 with retropulsion Stable produces described lymphadenopa thy. Signed by: Dr. Hortencia Verdin M.D. on 02/24/2019 10:50 PM Dicta marcie By: HORTENCIA VERDIN MD 49 COPY TO: SANDRA ARREDONDO DO CHEST SINGLE (PORTABLE)2019-02-24 20:10:00 [address] [address] Patient Name: JOSÉ MIGUEL COCHRAN MR #: [id number] : 1945 Age/Sex: 73/F Req #: [id number] Adm Physician: BERE SHIELDS MD Ordered by: VINICIUS PURDY NIB ASSEMBLER Report #: [id number] Location: [facility] Room/Bed: [place] [address] Procedure: [id number] DX/ CHEST SINGLE (PORTABLE) Exam Date: Exam Time: REPORT STATUS: Signed EXAMINATION: CHEST SINGLE (PORTABLE) INDICATION: ERMD ORDER Y SAMPSON RISON: 12/21/2015 FINDINGS: AP view TUBES and LINES: Stable triple lead left chest wall cardiac device. LUNGS: Hyperinflated lungs. M ildly increased left lower lung field haziness. Unchanged medial right mid to lower lung field linear scarring. PLEURA: No significant pleural effusion or pneumothorax. HEART AND MEDIASTINUM: The cardiomediastinal silhouette i s unremarkable. BONES AND SOFT TISSUES: No acute osseous lesion. Soft tissues are unremarkable. UPPER ABDOMEN: No free air under the diaphragm. IMPRESSION: Hyperinflated lungs, probably COPD changes. Mildly i ncreased left lower lung field haziness, could represent atelectasis or develo ping pneumonia in the appropriate clinical context. Signed by: Dr. Ganesh Urbina MD on 02/24/2019 8:11 PM Dictated By: GANESH URBINA MD Electron ically Signed By: GANESH URBINA MD on 02/24/192010 Transcribed By: CLARISSA on 02/24/192010 COPY TO: VINICIUS PURDY NIB ASSEMBLER CT ABDOMEN/PELVIS W 2019-02-16 16:45:00 [address] [place] [address] Patient Name: JOSÉ MIGUEL COCHRAN MR #: [id number] : 1945 Age/Sex: 73/F Req #: [id number] Adm Physician: Ordered by: VINICIUS PURDY NIB ASSEMBLER Report #: [id number] Location: ER Room/Bed: Procedure: [id number] CT/CT ABDOMEN/PELVIS W Exam Date: 02/16/19 Exam Time: 1550 REPORT STATUS: Signed EXAM: CT Abdomen and Pelvis WITH intravenous contrast INDICATION: Abdominal pain, constipation COMPARISON: None. TECHNIQUE: Abdomen and pelvis were sca nned utilizing a multidetector helical scanner from the lung base to the pubic symphysis after administration of IV contrast. Coronal and sagittal reformati ons were obtained. Routine protocol was performed. Scan was performed during p ortal venous phase. IV CONTRAST: 100mL of Isovue 370 ORAL CONTRAST: Gastrografin RADIATION DOSE: Total DLP: 227.4 mGy*cm Dose modulatio n, iterative reconstruction, and/or weight based adjustment of the mA/kV was u tilized to reduce the radiation dose to as low as reasonably achievable. FINDINGS: LOWER THORAX: Mild subsegmental atelectasis. Pacer leads partially visualized. HEPATOBILIARY: Right and left 1 cm hepatic hypodensities are in determinate on single phase imaging. No biliary ductal dilation. Unremarkable gallbladder. SPLEEN: No splenomegaly. PANCREAS: Mild diffuse pancreati c ductal prominence measuring up to 5 mm without definite pancreatic mass lesi on. ADRENALS: No adrenal nodules. KIDNEYS/URETERS: No hydronephrosis, sto miguel, or solid mass lesions. Bilateral small renal cysts. PELVIC ORGANS/BLADD ER: Status post hysterectomy. PERITONEUM / RETROPERITONEUM: No free air or fluid. LYMPH NODES: Para-aortic lymphadenopathy on the left adjacent to the diaphragmatic leah measuring up to 1.9 x 1.9 cm. (Series 2 image 16). Extensive retroperitoneal lymphadenopathy, for example on the left measuring up to 2.2 x 1.9 cm (series 2 image 25). VESSELS: Scattered atherosclerotic calcifications of the nonaneurysmal abdominal aorta and major branches. GI TRACT: Rectal distention to 7.8 cm with increased stool burden in the rectum and mild as sociated wall thickening and perirectal fat stranding. Normal stool burden thr oughout the remainder of the colon. BONES AND SOFT TISSUES: Status post NICK F of both proximal femora. No acute osseous injury. Mild diffuse osteopenia. N o suspicious lytic or blastic lesions. Age-indeterminate L2 compression fractu re with retropulsion. IMPRESSION: Extensive retroperitoneal and para-aor tic lymphadenopathy, concerning for lymphoproliferative malignancy versus meta static disease. Rectal distention to 7.8 cm with increased stool burden in the rectum and associated wall thickening and apparent rectal fat stranding, w hich can be seen with proctitis. Age-indeterminate L2 compression fractur e with retropulsion. Signed by: Dali Chapman MD on 02/16/2019 4:58 PM D ictated By: DALI CHAPMAN MD 1 658 Transcribed By: CLARISSA on 02/16/19 1658 COPY TO: VINICIUS PURDY N P ELBOW RIGHT DGQTKGHB8532-30-75 12:30:00 [address] [place] [address] Patient Name: JOSÉ MIGUEL COCHRAN MR #: [id number] : 1945 Age/Sex: 71/F Req #: [id number] Adm Physician: Ordered by: VIOLETA ROMERO MD Report #: [id number] Location: ER Room/Bed: Procedure: [id number] DX/ELBOW RIGHT COMPLETE Exam Date: 09/08/17 Exam Time: 1200 REPORT STATUS: S igned PROCEDURE: X-RAY RIGHT ELBOW, COMPLETE COMPARISON: None. INDICATIONS: FALL, RIGHT ELBOW PAIN FINDINGS: General osteopenia. There are no displaced fractures, dislocations, lytic or blastic lesions. The bones are well-mineralized. The soft-tissues are unremarkable. CONC LUSION: No acute osseous abnormality. Christina Street M.D. Dictated by: Christina Street M.D. on 09/08/2017 at 12:30 Elect ronically approved by: Christina Street M.D. on 09/08/2017 at 12:30 Dictated By: PAU STREET MD, MD 1230 Transcribed By: MARIALUISA on 09/08/17 1230 COPY TO: VIOLETA ROMERO MD CT BRAIN [id number] 12:29:00 [address] [address] Patient Name: JOSÉ MIGUEL COCHRAN MR #: [id number] : 1945 Age/Sex: 71/F Req #: [id number] Adm Physician: Ordered by: VIOLETA ROMERO MD Report #: [id number] Location: ER Room/Bed: Procedure: [id number] CT/CT BRAIN WO Exam Date: Exam Time: 1140 REPORT STATUS: Signed ADDENDUM #1 Dose modulation, iterative reconstruction, and/or weight based adjustment of the mA/kV was utilized to reduce the radiat ion dose to as low as reasonably achievable. Signed by: Dr. Reese toney M.D. on 10/05/2017 3:56 PM ORIGINAL REPORT Exam: Head CT without contrast History: Trauma, fall Comparison studies: Head CTs of 12/21/2015, 01/30/2015 and 05/07/2010 Technique: Axial images were obtained from the skull base to the vertex. Coronal and sagittal images reconstructed from the axial data. Intravenous contrast: None Findings: Scalp: No abnormalities. Bones: No fractures, blastic or lytic lesions. Brain sulc i: Appropriate for age. Ventricles: Mild compensatory dilatation. No hydroceph alus. Extra-axial spaces: No masses, no fluid collection. Parenchyma: No mass, acute hemorrhage or acute or chronic cortical vascular insults. Conf luent hypodensities in the supratentorial white matter are nonspecific but mos t compatible with chronic microvascular ischemic changes. Small chronic insult s in the posterior left cerebellum in the left PICA territory. Sellar/supra sellar region: No abnormalities. Craniocervical junction: Patent foramen magnu m. No Chiari one malformation. Incidental findings: * Bilateral intraoc ular lens replacement. * Atherosclerotic calcifications in the carotid sipho ns and intradural vertebral arteries. * Chronic inflammatory changes in th e right maxillary sinus which is obstructed at the level of the maxillary osti um, is opacified by mucosal thickening and contains central inspissated secret ions and calcifications. 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 IMPRESSION: 1. No acute abnormalities. 2. No significant changes from the previous head CT of 01/30/2015. 3. Mo derate microvascular ischemic changes. 4. Chronic left cerebellar insults. 5. 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 Signed by: Bruce Davies M.D. on 09/08/2017 12:36 PM Dictated By: REESE DAVIES MD [id number] Transcribed By: CLARISSA on 09/08/17 1236 COPY TO: VIOLETA ROMERO MD
[2019-06-29 11:50] VITALS: BP 133/65
--- NOTE | 2019-06-29 13:05 | Operative Report ---
DATE OF PROCEDURE: 06/29/2019 SURGEON: Israel Swanson MD PROCEDURE: Colonoscopy with polypectomy and biopsies. INDICATIONS FOR COLONOSCOPY: Colorectal cancer screening, history of fecal incontinence, fecal urgency. MEDICATIONS: The patient was done under MAC, please see anesthesiologist's note. PROCEDURE IN DETAIL: With the patient in left lateral decubitus position, a flexible fiberoptic Olympus colonoscope was inserted into the rectum with ease and advanced all the way to the cecum. The colon was excessively tortuous and spastic and suboptimally visualized most likely secondary to adhesions from previous abdominal surgeries. The scope was then withdrawn slowly. Mucosa overlying the cecum appeared to be within normal limits. A minute polyp was removed per cold biopsy forceps from the ascending colon. Whatever was visualized, the mucosa overlying the transverse appeared to be within normal limits. Mild patchy inflammatory changes noted in the left colon and rectum. Random biopsies were obtained. The scope was then retroflexed into the distal rectum and small internal hemorrhoids were noted, none of which was actively bleeding. The scope was then straightened out, it was subsequently withdrawn after securing an adequate stool specimen that was sent for the appropriate stool studies. The patient tolerated the procedure well. IMPRESSION: 1. Colon excessively tortuous and spastic, suboptimally visualized. No obvious obstructing or constricting lesions. 2. Ascending colon polyp, minute, removed per the cold biopsy forceps. 3. Mild patchy inflammatory changes, left colon, random biopsies obtained. 4. Proctitis, mild. 5. Internal hemorrhoids, none actively bleeding. PLAN: Follow up histology. Follow up stool studies. Initiate VSL #3 one p.o. b.i.d. The patient might benefit from a followup colonoscopy in 3 to 5 years. Israel Swanson MD [facility] [place][id number] cc: Blaise Dickerson MD
[2019-06-29 14:04] LABS: WBC,FECAL (FECAL LACTOFERRIN) NEGATIVE (NEGATIVE)
[2019-06-29 14:07] LABS: C DIFFICILE TOXIN A&B AMP PROB NEGATIVE (NEGATIVE)
== END | disposition home or self-care (01) ==
LOC: OR 08:35
PROVIDERS: ATTEND Internal Medicine Gastroenterology
DX: K58.9 Irritable bowel syndrome, unspecified (principal); K63.5 Polyp of colon; K62.89 Other specified diseases of anus and rectum; K64.8 Other hemorrhoids; I10 Essential (primary) hypertension; I48.91 Unspecified atrial fibrillation; H40.9 Unspecified glaucoma; Z88.0 Allergy status to penicillin; Z01.810 Encounter for preprocedural cardiovascular examination; Z01.812 Encounter for preprocedural laboratory examination; Z11.59 Encounter for screening for other viral diseases; Z79.82 Long term (current) use of aspirin; Z95.810 Presence of automatic (implantable) cardiac defibrillator; Z86.73 Personal history of transient ischemic attack (TIA), and cerebral infarction without residual deficits
CPT/HCPCS: 36415; 45380; 83630; 83993; 85025; 87045; 87177; 87328; 87493; 87635; 93005; J2001; J2704; 45378

== ENCOUNTER → 2019-09-01 | Outpatient (CLI) | payer MEDICARE ==
[~2019-09-01] MED LIST changes: -HYOSCYAMINE 0.125 MG TAB ONE; -LIDOCAINE HCL 2% LOCAL INJ 5 ML SDV VIAL INJ ONE; -PROPOFOL IV EMULSION 10 MG/ML 20 ML VIAL ONE
--- NOTE | 2019-09-01 16:30 | Diagnostic Imaging Report ---
EXAM: SHOULDER RIGHT COMPLETE, HUMERUS RIGHT 2+VIEWS, WRIST COMPLETE RIGHT, HAND 3+ VIEWS RIGHT DATE: 09/01/2019 3:23 PM INDICATION: Fall COMPARISON: Chest radiograph from 03/05/2019 FINDINGS: 2 views of the right shoulder, 2 views of the right humerus, 3 views of the right wrist, and 3 views of the right hand were obtained. There is posttraumatic deformity of the right humeral head from remote surgical neck fracture with surrounding callus formation and sclerosis. Findings are non-significantly changed from the prior chest radiograph from 03/05/2019. A superimposed acute fracture would be difficult to exclude in this setting. The AC joint and right clavicle appear unremarkable. The remainder of the right humerus is intact without evidence for acute fracture or dislocation. There are extensive degenerative changes and diffusely decreased bony mineralization within the right wrist limiting evaluation. There are prominent degenerative changes present within the wrist with joint space narrowing. No radiographically evident displaced fracture is appreciated. Advanced osteophytic changes noted within the right hand with joint space narrowing noted at the PIPs and DIPs. Abnormal flexion noted at the fourth PIP. No displaced acute fracture or dislocation is appreciated. The surrounding soft tissues are unremarkable without evidence for radiopaque foreign body. IMPRESSION: Posttraumatic deformity noted of the right humeral head, not significantly changed in appearance from the prior chest radiograph from 03/05/2019. A superimposed fracture would be be difficult to exclude in this setting. Allowing for limitations of advanced degenerative changes and diffusely decreased bony mineralization, no radiographically evident acute fracture or dislocation is identified within the remainder of the right humerus, wrist, or hand. If there is persistent clinical concern for acute fracture, consider further evaluation with dedicated CT examination. Signed by: Dr. Sebastian Marshall MD on 09/01/2019 4:27 PM
== END ==
LOC: RAD 14:58
PROVIDERS: ATTEND Family Medicine
DX: M25.531 Pain in right wrist (principal); M25.511 Pain in right shoulder; W19.XXXA Unspecified fall, initial encounter; N39.0 Urinary tract infection, site not specified

== ENCOUNTER 2021-03-12 12:29 | Emergency (ER) | payer MEDICARE ==
[~2021-03-12] VITALS: Ht 167.6 cm; Wt 49.9 kg
[2021-03-12 13:09] LABS: BASOPHILS # (AUTO) 0.2 (0.0-0.1); BASOPHILS % 1.7 % (0.0-1.0); EOSINOPHILS # (AUTO) 0.2 (0.0-0.4); EOSINOPHILS % 2.1 % (0.0-6.0); HEMATOCRIT 38.8 % (34.2-44.1); HEMOGLOBIN 12.6 g/dL (12.0-16.0); LYMPHOCYTES # (AUTO) 2.5 (1.0-3.2); LYMPHOCYTES % 25.7 % (18.0-39.1); MEAN CORPUSCULAR HEMOGLOBIN 29.6 pg (28-32); MEAN CORPUSCULAR HGB CONC 32.5 g/dL (31-35); MEAN CORPUSCULAR VOLUME 91.3 fL (81-99); MONOCYTES # (AUTO) 0.5 (0.2-0.8); MONOCYTES % 5.5 % (4.4-11.3); NEUTROPHILS # (AUTO) 6.2 (2.1-6.9); NEUTROPHILS % 64.6 % (38.7-80.0); PLATELET COUNT 322 x10e3/uL (140-360); RED BLOOD COUNT 4.25 x10e6/uL (3.6-5.1); RED CELL DISTRIBUTION WIDTH 12.7 % (11.7-14.4)
[2021-03-12 13:21] LABS: INR 0.89; PARTIAL THROMBOPLASTIN TIME 26.5 seconds (23.8-35.5); PROTHROMBIN TIME 12.7 seconds (11.9-14.5)
[2021-03-12 13:32] LABS: ALBUMIN 3.9 g/dL (3.5-5.0); ALBUMIN/GLOBULIN RATIO 1.1 (0.8-2.0); ANION GAP 15.2 mmol/L (8-16); CALCIUM 9.5 mg/dL (8.4-10.2); CREATININE, SERUM 0.77 mg/dL (0.57-1.11); POTASSIUM 4.2 mmol/L (3.5-5.1)
[2021-03-12 13:39] LABS: CREATINE KINASE MB 2.1 ng/mL (0-5.0)
[2021-03-12] MEDS ORDERED: ASPIRIN 81 MG CHEW TAB PO STA (15:01)
[2021-03-12 15:15] LABS: CLARITY,URINE SL CLOUDY (CLEAR); COLOR,URINE STRAW (YELLOW)
[2021-03-12 15:16] LABS: KETONES,URINE NEGATIVE (NEGATIVE); LEUKOCYTE ESTERASE ,URINE NEGATIVE (NEGATIVE); NITRITE,URINE NEGATIVE (NEGATIVE); PROTEIN,URINE DIPSTICK NEGATIVE (NEGATIVE); URINE UROBILINOGEN 0.2 mg/dL (0.2 - 1)
[2021-03-12 15:46] LABS: BACTERIA,URINE MODERATE /HPF; RBC,URINE 0-5 /HPF (0-5)
[2021-03-12] MEDS ORDERED: SODIUM CHLORIDE 0.9% 100 ML ONE (16:08)
[2021-03-12] MEDS ORDERED: IOPAMIDOL 370 MG/ML 200 ML INFUS..BTL INJ ONE (16:08)
[2021-03-12] MEDS ORDERED: APIXABAN 5 MG TABLET PO SCH (17:30)
== END 2021-03-12 18:51 | disposition short-term general hospital (02) ==
LOC: ER 12:41
DX: G45.9 Transient cerebral ischemic attack, unspecified (principal); I48.91 Unspecified atrial fibrillation; H40.9 Unspecified glaucoma; F32.A Depression, unspecified; Z20.822 Contact with and (suspected) exposure to COVID-19; Z95.810 Presence of automatic (implantable) cardiac defibrillator
CPT/HCPCS: 36415; 70450; 70496; 70498; 80053; 81001; 82550; 82553; 84484; 85025; 85610; 85730; 93005; 99284; J7050; Q9967; U0002

== ENCOUNTER 2021-10-01 14:35 | Emergency (ER) | payer MEDICARE, OTHER ==
[~2021-10-01] VITALS: Ht 167.6 cm; Wt 49.9 kg
[2021-10-01 15:03] LABS: BASOPHILS # (AUTO) 0.1 (0.0-0.1); BASOPHILS % 1.3 % (0.0-1.0); EOSINOPHILS # (AUTO) 0.2 (0.0-0.4); EOSINOPHILS % 1.8 % (0.0-6.0); HEMOGLOBIN 12.3 g/dL (12.0-16.0); LYMPHOCYTES # (AUTO) 2.2 (1.0-3.2); LYMPHOCYTES % 21.5 % (18.0-39.1); MEAN CORPUSCULAR HEMOGLOBIN 29.4 pg (28-32); MEAN CORPUSCULAR HGB CONC 33.2 g/dL (31-35); MEAN CORPUSCULAR VOLUME 88.5 fL (81-99); MONOCYTES # (AUTO) 0.9 (0.2-0.8); MONOCYTES % 8.8 % (4.4-11.3); NEUTROPHILS # (AUTO) 6.8 (2.1-6.9); NEUTROPHILS % 66.2 % (38.7-80.0); PLATELET COUNT 374 x10e3/uL (140-360); RED BLOOD COUNT 4.18 x10e6/uL (3.6-5.1); RED CELL DISTRIBUTION WIDTH 12.6 % (11.7-14.4)
[2021-10-01 15:16] LABS: INR 1.06; PROTHROMBIN TIME 14.8 seconds (11.9-14.5)
[2021-10-01 15:25] LABS: ALBUMIN 3.5 g/dL (3.5-5.0); ALBUMIN/GLOBULIN RATIO 0.8 (0.8-2.0); CREATININE, SERUM 0.76 mg/dL (0.57-1.11)
[2021-10-01] MEDS ORDERED: TETANUS/DIPHTHERIA TOX ADULT 0.5 ML SYR IM ONE (15:45)
== END 2021-10-01 17:05 | disposition home or self-care (01) ==
LOC: ER 14:44
DX: S00.83XA Contusion of other part of head, initial encounter (principal); R55 Syncope and collapse; W01.0XXA Fall on same level from slipping, tripping and stumbling without subsequent striking against object, initial encounter; Y92.89 Other specified places as the place of occurrence of the external cause; M25.512 Pain in left shoulder; I48.91 Unspecified atrial fibrillation; H40.9 Unspecified glaucoma; F32.A Depression, unspecified; Z86.73 Personal history of transient ischemic attack (TIA), and cerebral infarction without residual deficits; Z95.810 Presence of automatic (implantable) cardiac defibrillator
CPT/HCPCS: 36415; 70450; 71045; 72125; 80053; 83880; 84484; 85025; 85610; 90714; 93005; 99284

== ENCOUNTER 2021-10-14 15:50 | Emergency (ER) | payer MEDICARE, OTHER ==
[~2021-10-14] VITALS: Ht 167.6 cm; Wt 49.9 kg
[2021-10-14] MEDS ORDERED: SODIUM CHLORIDE 0.9% 1000ML 500 ML IV STA (16:12)
[2021-10-14 16:21] LABS: BASOPHILS # (AUTO) 0.1 (0.0-0.1); BASOPHILS % 0.9 % (0.0-1.0); EOSINOPHILS # (AUTO) 0.2 (0.0-0.4); EOSINOPHILS % 1.9 % (0.0-6.0); HEMATOCRIT 32.7 % (34.2-44.1); HEMOGLOBIN 10.5 g/dL (12.0-16.0); LYMPHOCYTES # (AUTO) 1.9 (1.0-3.2); LYMPHOCYTES % 16.4 % (18.0-39.1); MEAN CORPUSCULAR HEMOGLOBIN 29.5 pg (28-32); MEAN CORPUSCULAR HGB CONC 32.1 g/dL (31-35); MEAN CORPUSCULAR VOLUME 91.9 fL (81-99); MONOCYTES # (AUTO) 1.1 (0.2-0.8); MONOCYTES % 9.3 % (4.4-11.3); NEUTROPHILS # (AUTO) 8.3 (2.1-6.9); NEUTROPHILS % 71.2 % (38.7-80.0); PLATELET COUNT 364 x10e3/uL (140-360); RED BLOOD COUNT 3.56 x10e6/uL (3.6-5.1); RED CELL DISTRIBUTION WIDTH 13.3 % (11.7-14.4)
[2021-10-14 16:30] LABS: INR 1.1; PROTHROMBIN TIME 15.2 seconds (11.9-14.5)
[2021-10-14 16:31] LABS: PARTIAL THROMBOPLASTIN TIME 36.8 seconds (23.8-35.5)
[2021-10-14 16:37] LABS: ALBUMIN 3.4 g/dL (3.5-5.0); ALBUMIN/GLOBULIN RATIO 0.9 (0.8-2.0); CREATININE, SERUM 0.73 mg/dL (0.57-1.11)
[2021-10-14 18:06] LABS: CLARITY,URINE CLEAR (CLEAR); COLOR,URINE YELLOW (YELLOW); KETONES,URINE NEGATIVE (NEGATIVE); LEUKOCYTE ESTERASE ,URINE NEGATIVE (NEGATIVE); NITRITE,URINE NEGATIVE (NEGATIVE); PROTEIN,URINE DIPSTICK NEGATIVE (NEGATIVE); URINE UROBILINOGEN 0.2 mg/dL (0.2 - 1)
[2021-10-14 18:09] LABS: BACTERIA,URINE FEW /HPF; EPITHELIAL CELLS,URINE FEW /LPF
[2021-10-14 21:46] VITALS: BP 133/81
[2021-10-14] MEDS ORDERED: SODIUM CHLORIDE 0.9% 100 ML ONE (22:25)
[2021-10-14] MEDS ORDERED: IOPAMIDOL 370 MG/ML 100 ML INFUS..BTL INJ ONE (22:26)
== END 2021-10-14 21:42 | disposition other institution (70) ==
LOC: ER 17:25
DX: R47.01 Aphasia (principal); S06.5X0A Traumatic subdural hemorrhage without loss of consciousness, initial encounter; U07.1 COVID-19; I48.91 Unspecified atrial fibrillation; W18.39XA Other fall on same level, initial encounter; Y93.89 Activity, other specified; Y92.89 Other specified places as the place of occurrence of the external cause; H40.9 Unspecified glaucoma; F32.A Depression, unspecified; Z95.810 Presence of automatic (implantable) cardiac defibrillator
CPT/HCPCS: 36415; 70450; 70496; 70498; 71045; 80053; 81001; 82550; 82553; 84484; 85025; 85610; 85730; 93005; 99284; J7030; J7050; Q9967; U0002